=== PATIENT | female | born 1975 | race Caucasian/White ===

== ENCOUNTER 2020-05-14 09:40 | Outpatient (CLI) | payer BC, SELFPAY ==
--- NOTE | 2020-05-14 09:51 | MM_ITS ---
WS: [id number] BILATERAL DIGITAL SCREENING MAMMOGRAPHY WITH CAD CLINICAL INFORMATION: SCREENING HISTORY: Screening mammogram. No current complaints. COMPARISON: [id number] TECHNIQUE: Bilateral CC and MLO views. FINDINGS: Scattered fibroglandular densities bilaterally. No suspicious focal mass, asymmetry, calcifications, or architectural distortion. No evidence of malignancy. Punctate calcifications both breasts. MM/[place] [id number] IMPRESSION: BI-RADS: 2-Benign FOLLOW UP: 1 Year Follow-up Recommend return to annual screening mammography.
== END 2020-05-14 09:41 | disposition home or self-care (01) ==
LOC: RADSHAW 09:43
PROVIDERS: PCP Electrodiagnostic Medicine; Visit Provider Electrodiagnostic Medicine
DX: Z12.31 Encounter for screening mammogram for malignant neoplasm of breast (principal)
CPT/HCPCS: 77067

== ENCOUNTER 2021-04-23 08:02 | Outpatient (CLI) | payer BC, SELFPAY ==
--- NOTE | 2021-04-23 08:09 | MR_ITS ---
WS: [id number] MRI CERVICAL SPINE NONCONTRAST TECHNIQUE: Sagittal T1, T2 and STIR imaging. Axial T2, gradient, and fiesta imaging. CLINICAL INFORMATION: CERVICAL DISC DISORDER;THORACIC BACK PAIN;PREVENTIVE HEALTH COMPARISON: MRI October 22, 2018 FINDINGS: Straightening of the normal cervical lordosis. No high-grade central canal narrowing. Cord signal is normal. C2-C3: Normal. C3-C4: Normal. C4-C5: No significant disc bulging. Mild facet arthropathy. Spinal canal and foramen are patent. C5-C6: Mild disc bulging with a tiny annular fissure. Osteophytic ridging eccentric to the left with mild left and no significant right foraminal narrowing. Mild facet arthropathy. Spinal canal is paten t. C6-C7: Disc osteophyte complex with endplate ridging. Moderate left and no significant right foramina l narrowing. Spinal canal is patent. Tiny shallow central protrusion. C7-T1: Mild osteophytic ridging. No significant spinal canal or foraminal narrowing. Visualized brain stem structures: Normal. Prevertebral soft tissues: Normal. MR/MR cervical spin wo con* [id number] IMPRESSION: 1. Straightening of the normal cervical lordosis. Cord signal is normal. No hi gh-grade central canal narrowing. 2. Disc osteophyte complex with endplate ridging C6-7 with moderate left bony foraminal narrowing and encroachment on the exiting left C7 nerve root. This is unchanged from previous. 3. Tiny shallow central protrusion C5-C6 with a tiny annular fissure. Spinal c anal is patent. Mild left C5-6 bony foraminal narrowing. 4. No significant changes since 2019.
== END 2021-04-23 08:03 | disposition home or self-care (01) ==
LOC: RADSHAW 08:08
PROVIDERS: PCP Electrodiagnostic Medicine; Visit Provider Electrodiagnostic Medicine
DX: M54.6 Pain in thoracic spine (principal); Z00.00 Encounter for general adult medical examination without abnormal findings; M50.90 Cervical disc disorder, unspecified, unspecified cervical region; M25.78 Osteophyte, vertebrae; M50.222 Other cervical disc displacement at C5-C6 level
CPT/HCPCS: 72141